=== PATIENT | male | born 1960 | race Caucasian/White ===

== ENCOUNTER 2023-05-29 13:17 | Emergency (ER) | payer BC, SELFPAY ==
[2023-05-29 13:19] VITALS: BP 162/88
[2023-05-29 13:41] LABS: % Basophils 0.4 % (0-2); % Immature Granulocytes 0.2 % (0-0.5); % Lymphocytes 18.6 % (20.5-51.1); % Monocytes 5.5 % (1.7-9.3); % Neutrophils 75.3 % (42.2-75.2); Absolute Lymphocytes 0.9 10^3/uL (1.2-3.4); Absolute Monocytes 0.3 10^3/uL (0.1-0.6); Absolute Neutrophils 3.7 10^3/uL (1.4-6.5); Hematocrit 40.7 % (39.0-52.0); Hemoglobin 15.1 g/dL (13.0-18.0); Mean Corp Hgb Conc. 37.1 g/dL (33.0-37.0); Mean Corpuscular Volume 86.2 fL (80.0-94.0); Nucleated Red Blood Cells % 0 % (-); Platelet Count 240 10^3/uL (130-400); Red Blood Cell Count 4.72 10^6/uL (4.70-6.10); Red Cell Dist. Width 11.5 % (11.5-14.5); White Blood Cell Count 4.9 10^3/uL (4.8-10.8)
[2023-05-29 13:55] LABS: ALT (SGPT) 28 U/L (0-50); AST (SGOT) 45 U/L (17-59); Albumin 4.6 g/dl (3.5-5.0); Alkaline Phosphatase 79 U/L (38-126); Blood Urea Nitrogen 10 mg/dl (9-20); Calcium 9.3 mg/dl (8.4-10.2); Carbon Dioxide 26 mmol/L (22-30); Chloride 93 mmol/L (98-107); Glucose 153 mg/dl (70-99); Potassium 3.7 mmol/L (3.5-5.1); Sodium 130 mmol/L (135-145); Total Bilirubin 0.7 mg/dl (0.2-1.3); Total Protein 7.2 g/dl (6.3-8.2); eGFR > 60.00
[2023-05-29 14:05] LABS: Troponin I < 0.012 ng/ml
[2023-05-29 16:05] VITALS: BP 150/86
[2023-05-29 16:06] VITALS: BMI 27.8
[2023-05-29 16:37] LABS: D-Dimer < 0.27 ug/mlFEU (0.00-0.50)
[2023-05-29 16:49] LABS: Troponin I < 0.012 ng/ml
[2023-05-29 17:00] VITALS: BP 147/86
[2023-05-29 17:23] LABS: TSH Reflex To Free T4 2.16 uIU/ml (0.47-4.68)
[2023-05-29 18:00] VITALS: BP 155/95
--- NOTE | 2023-05-29 18:27 | ED.GENMED ---
History of Present Illness
General
Chief Complaint: Heart Rate Problem
Source: patient
Exam Limitations: none
Time Seen by Provider: 05/29/23 15:37
Travel History
Have you had any contact with someone who has COVID-19?: No
Do you have any symptoms of coronavirus? Fever > 100 degrees, chills, cough, shortness of breath, sore throat, loss of taste or smell, muscle aches, or headache?: No
History of Present Illness
History of Present Illness:
62-year-old male vague symptoms of feeling like his heart is racing into the 80s and pounding when he goes up and down stairs. Also some mild shortness of breath going up stairs. Concerned that his blood pressure was elevated. He had some chest
pain earlier today vague in nature. No diaphoresis or radiation. Has been generally weak and fatigued the last 2 weeks. Pelvic he was not sleeping weeks ago. Thought it might be secondary to abdominal issues. He had a CAT scan ultrasound and
endoscopy that just showed some reflux. Currently has minimal symptoms except for some vague nondescript localized anterior chest pain that has been there since this morning
Past History
Past History
ED Past Medical History: GERD, HTN and Hypercholesterolemia
ED Past Surgical History: Orthopedic and Other (Hemorrhoid surgery)
Social History
Personal:
Living: with family
Employment: Employed
Review of Systems
Review of Systems
All Other Systems: Not applicable
Constitutional: Denies fever
Respiratory: Denies cough or hemoptysis
Phy Exam
Physical Exam
Physical Exam:
GENERAL: Alert and oriented in no apparent distress
EYE: Orbits normal.
NECK: Supple, no thyroid palpable
ENT: Pharynx without erythema
CARDIAC: Regular rate and rhythm without any obvious murmurs.
LUNGS: Clear breath sounds,normal
ABDOMEN: Soft, without focal tenderness or distention
NEUROLOGICAL: Alert and oriented , grossly non-focal
SKIN: Warm and dry, no rash or lesion, no discoloration, skin intact.
MUSCULOSKELETAL: No edema,no deformity.Good color
PSYCH: Normal and appropriate interaction.
Course
Orders/Labs/Results
Orders:
Orders
05/29/23 13:23
Electrocardiogram (*1) Urgent
Reason for Study: Chest Pain
EKG- Treatment ONCE
05/29/23 13:31
Complete Blood Count/With Diff Urgent
Comprehensive Metabolic Panel Urgent
TSH Reflex To Free T4 Urgent
Comment: ADD ON
Troponin I Urgent
05/29/23 15:53
Electrocardiogram (*1) Stat
Reason for Study: Other
Other Reason for Exam: chest pain
EKG- Treatment ONCE
05/29/23 15:54
Add On- LAB Urgent
Tests Added?: tsh reflex t4
05/29/23 16:06
D-Dimer Urgent
Troponin I Urgent
Abnormal Lab Results
05/29/23
13:31
MCH 32.0 H pg
(27.0-31.0)
MCHC 37.1 H g/dL
(33.0-37.0)
Absolute Lymphs (auto) 0.9 L 10^3/uL
(1.2-3.4)
Neutrophils % 75.3 H %
(42.2-75.2)
Lymphocytes % 18.6 L %
(20.5-51.1)
Sodium 130 L mmol/L
(135-145)
Chloride 93 L mmol/L
(98-107)
Glucose 153 H mg/dl
(70-99)
05/29/23 13:31
05/29/23 13:31
Vital Signs
Initial and Last Documented VS:
Initial Vital Signs
Temp Pulse Resp BP Pulse Ox
98.1 F 85 20 162/88 97
05/29/23 13:19 05/29/23 13:19 05/29/23 13:19 05/29/23 13:19 05/29/23 13:19
Last Documented Vital Signs
Temp Pulse Resp BP Pulse Ox
98.1 F 84 19 155/95 93
05/29/23 13:19 05/29/23 18:00 05/29/23 18:00 05/29/23 18:00 05/29/23 18:00
*Critical Care Note
Total Time (30-74mins, 75-104mins- exclusive of procedures): Not Applicable
Update Note
Update Note:
Repeat EKG normal sinus rhythm at 74 with no acute changes. Repeat troponin negative. Clinically stable and nontoxic. No serious etiology found for his current symptoms. Hyponatremia may be secondary to significant fluid intake. He drinks 8 to
1016 ounce glasses of water a day. He will restrict that and repeat his sodium later in the week with results going to his primary care physician. He will also follow-up closely with cardiology
ED Attending Note
-
Portions of this chart may have been created with voice recognition software.� Occasional wrong word or��sound alike� substitutions may have occurred due to the inherent limitations of voice recognition software.
Discharge Plan
Departure
Patient Disposition: Home (Routine Discharge)
Date of Disposition: 05/29/23
Time of Disposition: 18:27
Patient with high blood pressure during this ER visit?: Yes
Discharge Problem:
Chest pain, General fatigue and weakness, Mild hyponatremia
Instructions: Fatigue (DC), Hyponatremia (DC), Weakness ED, Chest Pain CBC Follow Up, BLOOD PRESSURE
Prescriptions:
No Action
multivitamin [Daily Multiple] 1 EACH tablet
1 ea PO DAILY
atorvastatin 40 MG tablet
40 mg PO QPM
Patient Comments:
seems unsure of med doses
cetirizine 10 MG tablet
10 mg PO DAILY
acetaminophen [Tylenol Extra Strength] 500 MG tablet
1,000 mg PO PRN PRN (Reason: LOVETT/sinus)
Citalopram
1 tab PO DAILY
Patient Comments:
pt does not know dose
Activity Restrictions/Additional Instructions:
As we discussed decrease your fluid intake. Get repeat labs done this Sunday
The cardiology group should call you tomorrow for close follow-up
Also follow-up closely with your primary physician
Interventions
Interventions:
*Risk Screen - Suicide Last Done: 05/29/23 13:19
*General Assessment Last Done: 05/29/23 13:19
*Neglect/Abuse Screening Last Done: 05/29/23 13:19
*ED COVID-19 Vaccine History Last Done: 05/29/23 16:07
*Nursing Disposition Last Done: 05/29/23 18:57
ED- Cardiac Assessment Last Done: 05/29/23 16:07
ED- Pulmonary Assessment Last Done: 05/29/23 16:07
Discharge Date and Time
Discharge Date/Time: 05/29/23 18:58
Print Language: URDU
== END 2023-05-29 18:58 | disposition home or self-care (01) ==
LOC: EMR 13:17
PROVIDERS: Emergency Medicine; EMERGENCY PHYSICIAN Emergency Medicine; FAMILY PHYSICIAN Student in an Organized Health Care Education/Training Program
DX: R07.89 Other chest pain (principal); R53.83 Other fatigue; R53.1 Weakness; E87.1 Hypo-osmolality and hyponatremia; K21.9 Gastro-esophageal reflux disease without esophagitis; I10 Essential (primary) hypertension; E78.00 Pure hypercholesterolemia, unspecified
CPT/HCPCS: 99283; 80053; 84443; 84484; 85025; 85379; 93005

== ENCOUNTER → 2023-06-20 18:02 | Outpatient (REF) | payer BC, SELFPAY | LOC: RCS 18:02 | PROVIDERS: ATTENDING PHYSICIAN Internal Medicine Cardiovascular Disease; FAMILY PHYSICIAN Student in an Organized Health Care Education/Training Program | DX: R06.09 Other forms of dyspnea (principal) | CPT/HCPCS: 93306 ==

== ENCOUNTER → 2023-07-09 12:45 | Outpatient (REF) | payer BC, SELFPAY | LOC: RCS 12:45 | PROVIDERS: ATTENDING PHYSICIAN Internal Medicine Cardiovascular Disease; FAMILY PHYSICIAN Student in an Organized Health Care Education/Training Program | DX: R07.89 Other chest pain (principal) | CPT/HCPCS: 93017 ==